=== PATIENT | female | born 1985 | race Caucasian/White ===

== ENCOUNTER 2017-05-11 08:00 | Outpatient (CLI) | payer OTHER | END 2017-05-11 08:01 | disposition home or self-care (01) | LOC: LAB.N 08:00 | PROVIDERS: ATTEND Nurse Practitioner | DX: Z32.01 Encounter for pregnancy test, result positive (principal) | CPT/HCPCS: 36415; 84702 ==

== ENCOUNTER 2017-05-14 14:21 | Outpatient (CLI) | payer OTHER | END 2017-05-14 14:22 | disposition home or self-care (01) | LOC: LAB.N 14:21 | PROVIDERS: ATTEND Nurse Practitioner | DX: Z32.01 Encounter for pregnancy test, result positive (principal) | CPT/HCPCS: 36415; 84702 ==

== ENCOUNTER 2017-06-12 11:30 | Outpatient (CLI) | payer OTHER ==
[2017-06-12 11:59] LABS: BILIRUBIN,URINE NEGATIVE (NEGATIVE); GLUCOSE, URINE (UA) NEGATIVE (NEGATIVE); KETONES,URINE (UA) NEGATIVE (NEGATIVE); LEUKOCYTE ESTERASE, URINE NEGATIVE (NEGATIVE); NITRITE,URINE NEGATIVE (NEGATIVE); OCCULT BLOOD,URINE NEGATIVE (NEGATIVE); PROTEIN,URINE NEGATIVE (NEGATIVE); UROBILINOGEN,URINE 0.2 (NORMAL) E.U./dL (NORMAL)
[2017-06-12 12:02] LABS: BASOPHILS % (AUTO) 0.4 %; EOSINOPHILS # (AUTO) 0.1 10^3/uL (0.0-0.7); EOSINOPHILS % (AUTO) 0.8 %; HGB - HEMOGLOBIN 12.6 g/dL (12.0-16.0); LYMPHOCYTES # (AUTO) 1.5 10^3/uL (1.5-3.5); LYMPHOCYTES % (AUTO) 18.7 %; MEAN CORPUSCULAR HEMOGLOBIN 30.5 pg (27.0-31.0); MEAN CORPUSCULAR HGB CONC 34.4 g/dL (32.0-36.0); MEAN CORPUSCULAR VOLUME 88.6 fL (81.0-99.0); MEAN PLATELET VOLUME 8.5 fL (7.9-10.8); MONOCYTES # (AUTO) 0.5 10^3/uL (0.0-1.0); MONOCYTES % (AUTO) 5.7 %; NEUTROPHILS % (AUTO) 74.4 %; PLT - PLATELET COUNT 249 10^3/uL (130-450); RED BLOOD COUNT 4.12 10^6/uL (4.20-5.40); RED CELL DISTRIBUTION WIDTH 13.2 % (12.0-15.0); WHITE BLOOD COUNT 8.1 x10^3/uL (4.8-10.8)
[2017-06-12 12:09] LABS: CLARITY,URINE CLEAR (CLEAR)
[2017-06-12 12:10] LABS: BACTERIA,URINE None Seen /HPF (None Seen); RBC,URINE 0-5 /HPF (0-5); SQUAMOUS EPITHELIAL CELL,UR NONE SEEN (<= Few)
[2017-06-13 15:01] LABS: HEPATITIS C ANTIBODY NON-REACTIVE (NON-REACTIVE)
[2017-06-13 15:11] LABS: HEPATITIS B SURFACE ANTIGEN NON-REACTIVE (NON-REACTIVE)
[2017-06-13 16:03] LABS: HIV AG/AB 4TH GEN NON-REACTIVE (NON-REACTIVE)
== END 2017-06-12 11:31 | disposition home or self-care (01) ==
LOC: LAB 11:30
PROVIDERS: ATTEND Nurse Practitioner Obstetrics & Gynecology
DX: Z36.9 Encounter for antenatal screening, unspecified (principal)
CPT/HCPCS: 36415; 81001; 81599; 85025; 86592; 86762; 86803; 86850; 86900; 86901; 87340; 87389

== ENCOUNTER 2017-07-10 09:53 | Outpatient (CLI) | payer OTHER | END 2017-07-10 09:54 | disposition home or self-care (01) | LOC: LAB 09:53 | PROVIDERS: ATTEND Registered Nurse | DX: Z34.82 Encounter for supervision of other normal pregnancy, second trimester (principal) | CPT/HCPCS: 36415; 81599; 82105; 82677; 84702; 86336 ==

== ENCOUNTER 2017-08-18 07:27 | Outpatient (CLI) | payer OTHER ==
--- NOTE | 2017-08-18 11:32 | Ultrasound Report ---
Procedure Date: 08/18/2017 Accession Number: [id number] / [id number] Procedure: US - OB Detailed Eval CPT Code: FULL RESULT: EXAM: OB Detailed Eval DATE: 08/18/2017 9:22 AM CLINICAL HISTORY: For detailed assessment of anatomy TECHNIQUE: Real-time scanning was performed with senior patient account representative static images obtained. COMPARISON: None LAST MENSTRUAL PERIOD: 03/28/2017 Clinical Age: 20 weeks 3 days US Age: 21 weeks 1 days EFW Hadlock: 407 grams EFW % Hadlock: 84% Heart Rate: 137 bpm EDC: 01/02/2018 US EDC: 12/28/2017 BPD Hadlock: 21 weeks 0 days; Mean mm 49 HC Hadlock: 20 weeks 6 days; Mean mm 185 AC Hadlock: 21 weeks 4 days; Mean mm 165 FL Hadlock: 20 weeks 6 days; Mean mm 34 Presentation: Vertex Placental Location: Posterior. Synechiae present. Cervical Length: 5.4 cm Amniotic Fluid: LOIDA Subjectively normal cm; MVP 5 cm FINDINGS: The following anatomic structures were imaged and appear normal: The intracranial contents, including the ventricles and posterior fossa; the lips and orbits; the spine; the heart, including 4 chamber view and outflow tracts, and diaphragm; the abdominal contents, including the stomach, the bilateral kidneys, and urinary bladder, as well as a normal 3-vessel cord insertion; 4 limbs. IMPRESSION: Single intrauterine gestation age by composite ultrasound measurements today 21 weeks 1 day concordant with the expected age by LMP. PB based on LMP 01/02/2018. No anomalies are identified.
== END 2017-08-18 07:28 | disposition home or self-care (01) ==
LOC: DI 07:27
PROVIDERS: ATTEND Registered Nurse
DX: Z34.82 Encounter for supervision of other normal pregnancy, second trimester (principal)
CPT/HCPCS: 76811

== ENCOUNTER 2017-09-22 07:58 | Outpatient (CLI) | payer OTHER | END 2017-09-22 07:59 | disposition home or self-care (01) | LOC: LAB 07:58 | PROVIDERS: ATTEND Nurse Practitioner Obstetrics & Gynecology | DX: Z36.9 Encounter for antenatal screening, unspecified (principal) | CPT/HCPCS: 36415; 82950; 85018; 86850 ==

== ENCOUNTER 2017-12-08 09:20 | Outpatient (CLI) | payer OTHER | END 2017-12-08 09:21 | disposition home or self-care (01) | LOC: LAB.R 09:20 | PROVIDERS: ATTEND Registered Nurse | DX: Z34.83 Encounter for supervision of other normal pregnancy, third trimester (principal) | CPT/HCPCS: 87081 ==

== ENCOUNTER 2017-12-28 09:26 | Inpatient (IN) | payer OTHER ==
[2017-12-28] MEDS ORDERED: ONDANSETRON 4 MG/2 ML VIAL IVP PRN ×2 (09:31→22:15)
[2017-12-28] MEDS ORDERED: SODIUM CHLORIDE FLUSH 0.9% 10 ML SYRINGE IVP PRN (09:31)
[2017-12-28] MEDS ORDERED: ACETAMINOPHEN 325 MG TABLET PO PRN (09:31)
[2017-12-28] MEDS ORDERED: fentaNYL 100 MCG/2 ML VIAL IVP PRN (09:31)
[2017-12-28 10:51] LABS: BASOPHILS # (AUTO) 0.1 10^3/uL (0.0-0.1); BASOPHILS % (AUTO) 0.6 %; EOSINOPHILS # (AUTO) 0.1 10^3/uL (0.0-0.7); EOSINOPHILS % (AUTO) 0.6 %; HGB - HEMOGLOBIN 11.6 g/dL (12.0-16.0); LYMPHOCYTES # (AUTO) 1.6 10^3/uL (1.5-3.5); LYMPHOCYTES % (AUTO) 14.3 %; MEAN CORPUSCULAR HEMOGLOBIN 32.4 pg (27.0-31.0); MEAN CORPUSCULAR HGB CONC 35.6 g/dL (32.0-36.0); MEAN CORPUSCULAR VOLUME 91.1 fL (81.0-99.0); MEAN PLATELET VOLUME 10.1 fL (7.9-10.8); MONOCYTES # (AUTO) 0.8 10^3/uL (0.0-1.0); MONOCYTES % (AUTO) 6.9 %; NEUTROPHILS # (AUTO) 8.4 10^3/uL (1.5-6.6); NEUTROPHILS % (AUTO) 77.6 %; PLT - PLATELET COUNT 194 10^3/uL (130-450); RED BLOOD COUNT 3.59 10^6/uL (4.20-5.40); WHITE BLOOD COUNT 10.9 x10^3/uL (4.8-10.8)
--- NOTE | 2017-12-28 12:23 | HISTORY & PHYSICAL EXAMINATION ---
Admit History - Visit Reason Visit Reason: Other (elective induction of labor at term) - : 2 Parity: 1 Premature: 0 Ectopic: 0 : 0 Care: positive: [facility] (beginning @ 10 weeks x13 total visits) Risk/History: positive: None Complications This : positive: None Smoking Status: Never smoker - Mother's Labs Mother's Blood Type: positive: O Mother's RH: positive: Positive GBS: positive: Group B Step Negative Rubella Status: positive: Immune Review of Systems - Constitutional Constitutional: denies: Fatigue, Fever, Chills - Eyes Eyes: denies: Blurred vision, Spots in vision - Cardiovascular Cariovascular: denies: Irregular heart rate, Palpitations, Chest pain, Edema - Respiratory Respiratory: denies: Cough, Sputum production, SOB at rest, SOB with exertion - Gastrointestinal Gastrointestinal: denies: Abdominal pain, Change in bowel habits, Nausea, Vomiting - Genitourinary Genitourinary: reports: Frequency. denies: Dysuria, Urgency - Musculoskeletal Musculoskeletal: denies: Muscle pain, Back pain, Muscle aches - Integumentary Integumentary: denies: Rash, Pruritis, Lesions, Dryness - Neurological Neurological: denies: General weakness, Focal weakness, Numbness - Psychiatric Psychiatric: denies: Depression, Anxiety - All Other Systems All Other Systems: reports: Reviewed and negative Physical - Abdominal Exam Vital Signs: Temp Pulse Resp BP Pulse Ox 36.6 C 88 18 113/76 99 12/28/17 10:00 12/28/17 10:00 12/28/17 10:00 12/28/17 10:00 12/28/17 10:00 Contraction Frequency (min/apart): occasional Contraction Intensity: positive: Mild Uterine Resting Tone: positive: Soft - Monitoring Heart Rate Baseline: 140 Strip Review: positive: Category I - Presentation Presentation: positive: Vertex - Vaginal Exam Membranes: positive: Membranes intact Dilation (in cm): 2 Effacement (%): 50 Station: positive: Ballotable Cervical Position: positive: Posterior (firm; from clinic assessment 12/21, not repeated today as no clinical indication of change) - Speculum Exam Speculum Exam Performed: positive: No Findings: negative: Gross leak - Other Notes Labor Progress Note/Additional Text: Morenita Orozco is a 32 y/o @ 39w2d by first trimester US who received consistent care w/o complication beginning at 10 weeks. She has had an uneventful & her only complication has been hx of HSV, for which she began acyclovir daily prophylaxis beginning @ 36 weeks' gestation. Her antepartum screening labs & FAS were WNL & she had no indication for care outside of routine care throughout . She presents today w/ a request for elective induction of labor at term. She has previously reviewed options for IOL & desires preinduction cervical ripening w/ buccal misoprostol. Reviewed risks/benefits/alternatives, full PARQ held, pt & partner w/o questions/concerns, informed consent obtained. She understands that she has the option of expectant management to await spontaneous onset of labor & she desires IOL @ this time. 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 Admit to obs for preinduction cervical ripening w/ buccal misoprostol 50mcg q 4 hours per protocol 2. CBC/clot to hold 3. Reassess cervical status x4 hours, earlier PRN, reviewed options of Pitocin/AROM/additional misoprostol @ that time, depending on clinical scenario 4. Reviewed all pain management options, pt thinks she will desire epidural; analgesia/anesthesia PRN per pt request; no contraindication to use of self- administered inhaled N2O
[2017-12-28] MEDS: miSOPROStol 100 MCG TABLET BC SCH ×2 (12:32→16:49)
[2017-12-28] MEDS ORDERED: SODIUM CHLORIDE FLUSH 0.9% 10 ML SYRINGE IVP SCH (17:00)
[2017-12-28] MEDS: LACTATED RINGERS 1,000 ML IV SCH ×2 (19:06→21:22)
[2017-12-28] MEDS ORDERED: LIDOCAINE 1% 50 ML MDV ONE (20:16)
[2017-12-28] MEDS ORDERED: OXYTOCIN/SODIUM CHLORIDE 500 ML IV ONE (20:16)
[2017-12-28] MEDS ORDERED: MINERAL OIL LIGHT 10 ML MC ONE (20:16)
[2017-12-28] MEDS ORDERED: fent/BUPIV 2 MCG/0.125% 250 ML EP ONE (21:28)
[2017-12-28] MEDS ORDERED: METOCLOPRAMIDE 10 MG/2 ML VIAL IVP PRN (22:15)
[2017-12-28] MEDS ORDERED: LACTATED RINGERS 500 ML IV ONE (22:15)
[2017-12-28] MEDS ORDERED: NALOXONE 0.4 MG/ML VIAL IVP PRN (22:15)
[2017-12-28] MEDS ORDERED: diphenhydrAMINE INJ 50 MG/ML VIAL IVP PRN (22:15)
[2017-12-28] MEDS ORDERED: NALBUPHINE 10 MG/ML AMP IVP PRN (22:15)
[2017-12-28] MEDS ORDERED: ePHEDrine 50 MG/ML VIAL IVP PRN (22:15)
[2017-12-28] MEDS ORDERED: OXYTOCIN 10 UNIT/ML VIAL IM ONE ×2 (23:05→23:18)
[2017-12-28] MEDS ORDERED: HYDROCORTISONE 1% CREAM 28 GM TUBE PR PRN (23:18)
[2017-12-28] MEDS ORDERED: WITCH HAZEL/GLYCERIN 1 EACH MED..PAD TOP PRN (23:18)
[2017-12-28] MEDS ORDERED: MAGNESIUM HYDROXIDE 2,400 MG/30 ML UDC PO PRN (23:18)
[2017-12-28] MEDS ORDERED: HYDROCORTISONE/PRAMOXINE 10 GM PR PRN (23:18)
--- NOTE | 2017-12-28 23:28 | DELIVERY NOTE ---
Delivery Note - Labor Labor: positive: Other (preinduction cervical ripening x2 doses misoprostol 50mcg BC, followed by active labor) - Cervical Ripening Method Cervical Ripening Method: positive: Misoprostil - Presentation Presentation: positive: Vertex, Compound (L hand), DIANA - left occiput anterior - Nuchal Cord Nuchal Cord: positive: None - Anesthetic Anesthetic Type: - Amniotic Fluid Description Amniotic Fluid Description: positive: Clear (SROM @ 2258) - Episiotomy Type Episiotomy Type: positive: None - Laceration Laceration: positive: 1st degree, Perineal - Suture Suture Type: positive: Vicryl Suture Size: positive: 2-0 - [place] : positive: Placed in direct skin contact with mother, Stimulated, [place] used [place] sex: positive: Male - Cord Cord: positive: 3 vessels - Placenta Placenta: positive: Intact, Spontaneous - Estimated Blood Loss Estimated Blood Loss (in cc): 300 - Post Delivery Events Post Delivery Events: positive: No post delivery events - Delivery Comments (Free Text/Narrative) Delivery Comments (Free Text/Narrative): Morenita Orozco is a 32 y/o [id number] who presented @ 39w2d by first trimester US for elective induction of labor w/ unfavorable cervical status. She received 2 doses of buccal misoprostol 50mcg over a period of 8 hours & began nino regularly as a result. At 21:25, she was found to be 5cm & actively laboring. She requested & received epidural anesthesia for pain management. She then progressed spontaneously to complete dilatation w/o complication or further augmentation @ 22:49, for a total first stage duration of 1 hour, 24 minutes. FHTs were monitored electronically t/o & were consistently category I. Pt began pushing w/ spontaneous urge & IBOW @ 22:53 & experienced SROM for moderate CAF @ 22:58. She delivered a viable male in DIANA position w/ compound L hand over a first degree perineal laceration @ 22:59, for a total 2nd stage duration of 10 minutes & 6 minutes of active pushing. Infant vigorous w/ spontaneous, lusty cry. Placed to maternal abd for drying/stim. Delayed cord clamping until cessation of pulsation, then cord clamped x2 by CNM, cut by FOB. 3VC noted, cord blood obtained. Delayed active management of the third stage secondary to ineffective IV infusion; 10 units IM Pitocin administered x1 s/p spontaneous, intact, Odom delivery of placenta @ 23:04, for a total 3rd stage duration of 5min. Fundus firm @ U. Vagina & perineum inspected & 1st degree perineal laceration noted. Repaired under epidural anesthesia w/ single stitch of 2-0 vicryl. Hemostatic & well-approximated. EBL 300mL. Mother & stable. Apgars 8/9, weight pending, name pending. Plans to breastfeed & reports successful previous experience. Infant nuzzling @ breast w/in 15 minutes of delivery.
[2017-12-29] MEDS: LACTATED RINGERS 1,000 ML IV SCH (00:11)
[2017-12-29] MEDS: IBUPROFEN 800 MG TABLET PO SCH ×4 (00:12→17:55)
[2017-12-29] MEDS ORDERED: OXYTOCIN 10 UNIT/ML VIAL IM SCH (00:13)
[2017-12-29] MEDS ORDERED: OXYTOCIN 10 UNIT/ML VIAL ONE (01:09)
[2017-12-29] MEDS: miSOPROStol 100 MCG TABLET BC SCH (08:18)
[2017-12-29] MEDS ORDERED: DOCUSATE SODIUM 100 MG CAPSULE PO SCH (09:00)
[2017-12-29 12:45] VITALS: BP 104/52
--- NOTE | 2017-12-29 18:19 | Discharge Plan ---
Discharge Plan Disposition: 01 Home, Self Care Condition: Good Diet: Regular Activity Restrictions: pelvic rest x6 weeks Shower Restrictions: No Driving Restrictions: No Weight Bearing: Full Weight Instruction Topics: Breastfeed How To, Vaginal After, Exercises [place]egel No Smoking: If you smoke, Please STOP! Call for help. Follow-up with: Vishal Tate, EVARISTO, GREGORIA [Provider Admit Priv/Credential] -
--- NOTE | 2017-12-29 18:43 | DISCHARGE SUMMARY ---
"Discharge Summary Admit Date: 12/28/17 Discharge Date: 12/29/17 Discharging Provider: lacy Code Status: Attempt Resuscitation Condition at Discharge: Good Discharge Disposition: 01 Home, Self Care Discharge Facility Name: [facility] - DIAGNOSES Admission Diagnoses: 39 weeks gestation Discharge Diagnoses with Status of Each Condition: - HPI History of Present Illness: Morenita Orozco is a 32 y/o [id number] who presented for preinduction cervical ripening with a request for elective induction of labor at 39 weeks' gestation. She received 2 buccal doses of 50mcg misoprostol & progressed therafter to active labor. She received an epidural for anesthesia & progressed rapidly to complete dilatation. She delivered a viable male vaginally over a first degree perineal laceration w/o incident. - CONSULTS | PROCEDURES Consultations: anesthesia Procedures: preinduction cervical ripening epidural placement repair of 1st degree perineal laceration - HOSPITAL COURSE Hospital Course: , Morenita is doing well. She is ambulating & voiding w/o difficulty or discomfort. She is passing flatus & tolerating a regular diet. She is well w/o discomfort or concerns; she reports a previously successful experience x16 months. She has adequate pain control w/ non-opioid analgesia & reports minimal lochia rubra. She is not planning to return to work & has excellent social support. She denies a hx of pp depression. She is not planning a short-interval . She is able to fully articulate pp warning s/sx, including pp depression s/sx, and pp aftercare instructions. She is eager to leave the hospital. - ALLERGIES Allergies/Adverse Reactions: Allergies Allergy/AdvReac Type Severity Reaction Status Date / Time No Known Drug Allergies Allergy Verified 12/29/17 00:58 - MEDICATIONS Home Medications: Ambulatory Orders Medication Instructions Recorded Confirmed Ibuprofen [Motrin] 800 mg PO Q6H tablet 12/29/17 - PHYSICAL EXAM AT DISCHARGE General Appearance: positive: No acute distress, Alert Eyes Bilateral: positive: Normal inspection, PERRL, EOMI Respiratory: positive: Chest non-tender, No respiratory distress, Breath sounds nml Cardiovascular: positive: Regular rate & rhythm, No murmur, No gallop Abdomen: positive: Non-tender, No distention, Other (FF U-1) Skin: positive: Color nml, No rash, Warm, Dry Extremities: positive: Non-tender, Full ROM, Nml appearance, No pedal edema. negative: Calf tenderness, New's sign/cords Neurologic/Psychiatric: positive: Oriented x3, CN's nml (2-12), Motor nml, Sensation nml, Mood/affect nml - LABS Result Diagrams: 12/28/17 10:35 - FOLLOW UP Follow Up: x1 week w/ Visahl Tate CNM, earlier PRN - TIME SPENT Time Spent in Discharge (Minutes): 25"
--- NOTE | 2017-12-29 19:13 | Labor Flowsheet ---
Labor Flowsheet Datetime Report Generated by CPN: 12/29/2017 19:13 Datetime: 12/29/2017 12:08 VITAL SIGNS NBP Sys/Kay/Mean (mmHg): 104 : 52 : 63 Pulse: 69 LaborFlag: Labor Datetime: 12/28/2017 23:25 SpO2 (%): 98 Datetime: 12/28/2017 22:56 UTERINE ACTIVITY Monitor Mode: External Frequency (min): 1-3 Quality: Strong Duration (sec): 60-90 Pattern: Normal: <= 5 Contractions in 10 Minutes Resting Tone (Palpate): Relaxed ASSESSMENT A Monitor Mode: External US FHR Baseline Rate : 130 Variability: Moderate 6-25 bpm Accelerations: 15X15 Comments: possible variable decels STAGE 2 Pushing: Urge to Push Pushing Position: Pushing with Contractions Pushing Progress: Descent with Pushing Datetime: 12/28/2017 22:50 Decelerations: None Category: Category I TEACHING Instructional Method: Verbal Plan of Care: Plan of Care Discussed Labor/Induction: Pushing Methods Datetime: 12/28/2017 22:49 Monitor Interventions for FHR: Ultrasound Adjusted COMMUNICATION Communication: Call/Page Placed to Provider Provider Notified (Name): Vishal Tate Communication Comments: Pt having lots of pressure and bag of water bulging out of vagina, RN reque sted provider to report to bedside Datetime: 12/28/2017 22:44 MEDICATIONS Antiemetics/Antacids: Zofran (mg) @ 4 Datetime: 12/28/2017 22:40 PAIN Pain Scale: 6 Pain Presence: Intermittent Pain Type: Contraction Pain Location: Abdomen Pain Assessment Comments: pt hit epidural button Anesthesia Level Check: T8- Ribs Datetime: 12/28/2017 22:35 VAGINAL EXAM Dilatation (cm): 7.0 Effacement (%): 90 Station: 0 Exam by: KEREN Robin Vaginal Exam Comments: pt feels increased pressure in bottom Datetime: 12/28/2017 22:14 Pain Relief Measures: Epidural Given Datetime: 12/28/2017 22:01 Monitor Interventions for UA: [place] Adjusted Datetime: 12/28/2017 21:56 Epidural Procedure: Loading Dose Datetime: 12/28/2017 21:34 Patient Care Comments: sitting at side of bed PROCEDURE TIME OUT Procedure Verify: Correct Patient Identity; Accurate Procedure Consent Form; Agreement on Procedure to be Done; Correct Patient Position; Safety Precautions Based on Patient History or Medication Use ANESTHESIA Epidural Positioning: Sitting Datetime: 12/28/2017 21:30 Pain Coping: Talking Through Contractions Pain Management: Epidural Datetime: 12/28/2017 21:15 Actions for Decelerations: Side to Side Patient Position/Activity: Left Lateral Datetime: 12/28/2017 21:14 I/O Interventions: Up to BR Datetime: 12/28/2017 21:04 Cervix, Consistency: Moderate Cervix, Position: Midposition Datetime: 12/28/2017 20:39 Temperature (C): 36.6 Datetime: 12/28/2017 19:48 Unit Routine: Unit Personnel Medications: Cervical Ripening Datetime: 12/28/2017 19:45 MATERNAL ASSESSMENT Level of Consciousness: Fully Conscious Headache: Denies Breath Sounds, Left: Clear and Equal Breath Sounds, Right: Clear and Equal Nausea/Vomiting: Denies Datetime: 12/28/2017 19:22 Respirations: 16 Datetime: 12/28/2017 17:45 FHR Baseline Changes: No Baseline Change Datetime: 12/28/2017 16:49 Cervical Ripening Agents: Cytotec @ 50 Datetime: 12/28/2017 16:43 Membrane Status: Intact Datetime: 12/28/2017 16:42 Strip Reviewed by: Morghan Milagrosa Datetime: 12/28/2017 16:30 Contraction Comments: Brief, [id number] contractions that spaced back out. Provider aware. Datetime: 12/28/2017 11:00 Stage of : Labor Datetime: 12/28/2017 10:30 PATIENT CARE IV/Blood Work: IV Started
== END 2017-12-29 19:00 | disposition home or self-care (01) | DRG 807 ==
LOC: WFO 09:26 → FBP 09:27 → WFO 09:30 → FBP 09:31
PROVIDERS: ADMIT Registered Nurse; ATTEND Registered Nurse
PROC: 10E0XZZ Delivery of Products of Conception, External Approach (ICD-10-PCS; principal; 2017-12-28)
PROC: 0HQ9XZZ Repair Perineum Skin, External Approach (ICD-10-PCS; 2017-12-28)
DX: O98.52 Other viral diseases complicating childbirth (principal); Z37.0 Single live birth; O32.6XX0 Maternal care for compound presentation, not applicable or unspecified; O70.0 First degree perineal laceration during delivery; Z3A.39 39 weeks gestation of pregnancy
CPT/HCPCS: 36415; 85025

== ENCOUNTER 2018-03-11 12:01 | Outpatient (CLI) | payer OTHER | END 2018-03-11 23:59 | disposition home or self-care (01) | LOC: LAB.N 12:01 | PROVIDERS: ATTEND Registered Nurse | DX: Z00.00 Encounter for general adult medical examination without abnormal findings (principal) | CPT/HCPCS: 36415; 84443 ==